=== PATIENT | male | born 1990 | race Hispanic/Latino ===

== ENCOUNTER 2024-05-27 22:41 | Emergency (ER) | payer OTHER ==
[~2024-05-27] VITALS: Ht 170.2 cm; Wt 79.0 kg
[2024-05-27] MEDS ORDERED: MULTIVITAMINS 10 ML,FOLIC ACID 1 MG,THIAMINE HCL 100 MG in SODIUM CHLORIDE 0.9% 1,000 ML IV ONE (23:00)
[2024-05-27] MEDS ORDERED: FOLIC ACID 1 MG/0.2 ML ML ONE (23:00)
[2024-05-28 00:45] VITALS: BP 116/87
== END 2024-05-28 00:47 | disposition other institution, planned readmission (95) ==
LOC: ED 22:41
DX: E86.0 Dehydration (principal); M54.50 Low back pain, unspecified
CPT/HCPCS: 36415; 80053; 84443; 85025; 96365; 99283-25; J3411; J7030